=== PATIENT | female | born 1985 | race Caucasian/White ===

== ENCOUNTER 2017-07-01 12:59 | Emergency (ER) | payer BC, OTHER ==
--- NOTE | 2017-07-01 13:19 | UC ---
Throat Pain/Nasal Juma HPI - HPI Summary HPI Summary: 32 yo WF presents with sore throat and b/l earache for the last 4 days. Has not taken anything OTC. Denies fever, chills, cough, SOB, chest pain. - History of Current Complaint Stated Complaint: THROAT,FEVER Time Seen by Provider: 07/01/17 13:19 Hx Obtained From: Patient Hx Last Menstrual Period: ~05/03/15 Onset/Duration: Sudden Onset Severity: Moderate Pain Intensity: 4 Pain Scale Used: 0-10 Numeric - Allergies/Home Medications Allergies/Adverse Reactions: Allergies Allergy/AdvReac Type Severity Reaction Status Date / Time amoxicillin Allergy Intermediate Hives Verified 07/01/17 13:16 Penicillins Allergy Intermediate Hives Verified 07/01/17 13:16 sulfamethoxazole Allergy Intermediate Hives Verified 07/01/17 13:16 [From Bactrim] trimethoprim [From Bactrim] Allergy Intermediate Hives Verified 07/01/17 13:16 PMH/Surg Hx/FS Hx/Imm Hx - Additional Past Medical History Additional PMH: None Previously Healthy: Yes Other History Of: Negative For: HIV, Hepatitis B, Hepatitis C, Anticoagulant Therapy - Surgical History Surgical History: Yes Surgery Procedure, Year, and Place: Appendectomy, 1999, [place] - Family History Known Family History: Positive: None - Social History Occupation: Employed Full-time Lives: With Family Alcohol Use: Occasionally Substance Use Type: None Smoking Status (MU): Never Smoked Tobacco Household Exposure Type: Cigarettes - Immunization History Most Recent Influenza Vaccination: Not the 2014/2015 Season Review of Systems Constitutional: Negative Skin: Negative Eyes: Negative ENT: Sore Throat Respiratory: Negative Cardiovascular: Negative Gastrointestinal: Negative Neurovascular: Negative Neurological: Negative Psychological: Negative All Other Systems Reviewed And Are Negative: Yes Physical Exam - Summary Physical Exam Summary: GENERAL: NAD. WDWN. No pain distress. SKIN: No rashes, sores, lesions, or open wounds. HEENT: Head: AT/NC Eyes: Conjunctiva clear without inflammation or discharge. Ears: Hearing grossly normal. TMs intact, no bulging, erythema, or edema. Nose: Nasal mucosa pink and moist. NTTP maxillary and frontal sinus. Throat: Posterior oropharynx moderate erythema. No tonsillar enlargement. No exudates. Uvula midline. No hoarse voice or muffled voice. NECK: Supple. Mild TTP tonsillar LAD. CHEST: CTAB. No r/r/w. No accessory muscle use. Breathing comfortably and in no distress. CV: RRR. Without m/r/g. Pulses intact. Brisk cap refill. NEURO: Alert. CN II-XII grossly intact. PSYCH: Age appropriate behavior. Triage Information Reviewed: Yes Throat Pain/Nasal Course/Dx - Course Course Of Treatment: POC strep positive. Zpak - Differential Dx/Diagnosis Provider Diagnoses: Strep pharyngitis Discharge - Sign-Out/Discharge Documenting (check all that apply): Discharge/Admit/Transfer - Discharge Plan Condition: Stable Disposition: HOME Prescriptions: Azithromycin TAB* [Zithromax TAB (Z-LISA) 250 mg #6 tabs] 2 tab PO .TODAY, THEN 1 DAILY #1 lisa Patient Education Materials: Strep Throat (DC) Referrals: Bernabe Villalobos MD [Primary Care Provider] - Additional Instructions: If you develop a fever, shortness of breath, chest pain, new or worsening symptoms - please call your PCP or go to the ED. - Billing Disposition and Condition Condition: STABLE Disposition: HOME
[2017-07-01 13:29] VITALS: BP 137/76
== END 2017-07-01 13:51 | disposition home or self-care (01) ==
LOC: UCCORT 12:59
DX: J02.0 Streptococcal pharyngitis (principal); Z88.1 Allergy status to other antibiotic agents; Z88.0 Allergy status to penicillin; Z88.2 Allergy status to sulfonamides; Z77.22 Contact with and (suspected) exposure to environmental tobacco smoke (acute) (chronic)
CPT/HCPCS: 87651; 99212; G0463

== ENCOUNTER 2018-01-12 08:21 | Emergency (ER) | payer OTHER ==
--- OUTSIDE RECORDS SUMMARY | 2018-01-12 08:33 | XMS REPORT ---
:1985 Author Organization [facility] Address [address] 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 Problem Unspecified N83.202 Active 59297529542625520 ovarian cyst, left side Problem Family history Z80.3 Active 324406836 of malignant neoplasm of breast Problem Cystocele, N81.12 Active 200182290 lateral Problem Unspecified R32 Active 648624286 urinary incontinence Problem Other specified N93.8 Active 288136646 abnormal uterine and vaginal bleeding ALLERGIES Substance Reaction Event Type Date Status penicillin rash Drug Allergy Dec, Active amoxicillin rash Drug Allergy Dec, Active Septra rash Drug Allergy Dec, Active ENCOUNTERS Encounter Location Date Diagnosis [facility] [address], [place], [place] [id number] [facility] [address] Dec, [place], [place] [id number] [facility] [address] Dec, [place] [id number] [facility] [address] Aug, Lichen simplex chronicus OBGYN [facility], L28.[address] [place] [id number] abnormal uterine and vaginal bleeding N93.8 [facility] [address] Apr, Lichen simplex chronicus [facility] L[address] [place] [id number] [place] [facility] [address] [facility], Noninflammatory disorder [address] [place], of vulva and perineum, [place] [id number] unspecified N90.9 [place] [facility] [address] [facility], Other specified abnormal [address] [place], uterine and vaginal [place] [id number] bleeding N93.8 ; Abnormal findings on diagnostic imaging of other specified body structures R93.8 ; Other specified noninflammatory disorders of vagina N89.8 and Benign essential microscopic hematuria R31.1 [facility] [address] [place], Feb, [place] [id number] [facility] [address] Feb, Other specified abnormal OBGYN [facility], uterine and vaginal [place] [id number] bleeding N93.8 ; Abnormal findings on diagnostic imaging of other specified body structures R93.8 ; Other specified noninflammatory disorders of vagina N89.8 and Noninflammatory disorder of vulva and perineum, unspecified N90.9 [facility] [address] Feb, OBG[place], [place] [id number] [facility] Feb, [place] [id number] [facility] Jan, [place] [id number] [facility] Jan, Other specified abnormal OBGYN [facility], uterine and vaginal [place] [id number] bleeding N93.8 ; Unspecified ovarian cyst, left side N83.202 and Abnormal findings on diagnostic imaging of other specified body structures R93.8 [facility] Jan, Other specified abnormal OBGYN [facility], uterine and vaginal [place] [id number] bleeding N93.8 [place] [facility] [address] Jan, Other specified abnormal OBGYN [facility], uterine and vaginal [place] [id number] bleeding N93.8 ; Unspecified ovarian cyst, left side N83.202 and Abnormal findings on diagnostic imaging of other specified body structures R93.8 [facility] Jan, Abnormal findings on OBGYN [facility], diagnostic imaging of [place] [id number] other specified body structures R93.8 ; Unspecified ovarian cyst, left side N83.202 and Other specified abnormal uterine and vaginal bleeding N93.8 [place] [facility] Dec, Other specified abnormal OBGYN [facility], uterine and vaginal [place] [id number] bleeding N93.8 ; Unspecified ovarian cyst, left side N83.202 and Abnormal findings on diagnostic imaging of other specified body structures R93.8 [place] [facility] Dec, Other specified abnormal OBGYN [facility], uterine and vaginal [place] [id number] bleeding N93.8 [place] [facility] 14 Dec, 2016 Other specified abnormal OBGYN [facility], uterine and vaginal [place] [id number] bleeding N93.8 [place] [facility] 08 Dec, 2016 Encounter for OBGYN [facility], gynecological examination [place] [id number] (general) (routine) with abnormal findings Z01.411 ; Encounter for screening for malignant neoplasm of cervix Z12.4 ; Unspecified urinary incontinence R32 ; Other specified abnormal uterine and vaginal bleeding N93.8 ; Family history of malignant neoplasm of breast Z80.3 and Cystocele, lateral N81.12 IMMUNIZATIONS No Known Immunizations SOCIAL HISTORY Never Assessed REASON FOR REFERRAL FUNCTIONAL STATUS PLAN OF CARE VITAL SIGNS MEDICATIONS Medication Instructions Dosage Frequency Start Date End Date Duration Status clobetasol applied topically 1 charissa 30 days Active topical 0.05% 2 times a day x 3 weeks when symptomatic, then weekly to pevent flareups PROCEDURES No Known procedures RESULTS No Results REASON FOR VISIT Annual Exam Insurance Providers [facility] Member Patient Patient Patient Patient Patient Subscriber Subscriber Subscriber Group Insurance Plan Plan Plan Plan ID Relationship Address Phone Name Date of ID Name Date of No Type Insurance Insurance Insurance Coverage to Subscriber Address Phone Name Dates Lifetime [phone] Lifetime self [place] [id number] Benefit [place] 48 Benefit [place] [employer] [id number] MEDICAL (GENERAL) HISTORY Type Description Date Medical History Lichen Simplex Chronicus Surgical History appendectomy 2009 Surgical History [place] teeth extracted Surgical History hysterosopy/D&C. 03/26/17 Hospitalization History Childbirth Hospitalization History See above
[2018-01-12 08:40] VITALS: BP 116/75
--- NOTE | 2018-01-12 09:12 | UC ---
Throat Pain/Nasal Juma HPI - HPI Summary HPI Summary: 32-year-old female presents with 4 day history of nonproductive cough, fever ( 102 F), general malaise, fatigue, body aches, and night sweats. Denies nasal congestion, nasal drainage, sore throat, ear pain, chest pain, shortness of breath, abdominal pain, nausea, or vomiting. - History of Current Complaint Chief Complaint: UCGeneralIllness Stated Complaint: FEVER/COUGH/ACHES/DARNELL Time Seen by Provider: 01/12/18 09:01 Hx Obtained From: Patient Hx Last Menstrual Period: 01/12/18 Onset/Duration: Gradual Onset, Lasting Days - 4 Severity: Moderate Pain Intensity: 5 Cough: Nonproductive Associated Signs & Symptoms: Negative: Dysphagia, Wheezing, Sinus Discomfort, Nasal Discharge, Fever, Vomiting, Rash - Allergies/Home Medications Allergies/Adverse Reactions: Allergies Allergy/AdvReac Type Severity Reaction Status Date / Time amoxicillin Allergy Intermediate Hives Verified 01/12/18 08:37 Penicillins Allergy Intermediate Hives Verified 01/12/18 08:37 sulfamethoxazole Allergy Intermediate Hives Verified 01/12/18 08:37 [From Bactrim] trimethoprim [From Bactrim] Allergy Intermediate Hives Verified 01/12/18 08:37 Home Medications: Home Medications Ibuprofen TAB* [Motrin TAB* 600 MG] 600 mg PO Q6H PRN 01/12/18 [History Confirmed 01/12/18] PMH/Surg Hx/FS Hx/Imm Hx Previously Healthy: Yes - Denies significant PMH Other History Of: Negative For: HIV, Hepatitis B, Hepatitis C, Anticoagulant Therapy - Surgical History Surgical History: Yes Surgery Procedure, Year, and Place: Appendectomy, 1999, [place]. colposcopy - Family History Known Family History: Positive: Non-Contributory - Social History Occupation: Employed Full-time Alcohol Use: Occasionally Substance Use Type: None Smoking Status (MU): Never Smoked Tobacco Household Exposure Type: Cigarettes - Immunization History Most Recent Influenza Vaccination: Not the 2014/2015 Season Review of Systems All Other Systems Reviewed And Are Negative: Yes Constitutional: Positive: Fever, Chills, Fatigue, Other - general malaise, body aches, night sweats Skin: Negative: Rash Eyes: Negative: Drainage, Eye Redness ENT: Negative: Sore Throat, Ear Ache, Nasal Discharge, Sinus Congestion, Sinus Pain/Tenderness Respiratory: Positive: Cough. Negative: Shortness Of Breath Cardiovascular: Negative: Palpitations, Chest Pain Gastrointestinal: Negative: Abdominal Pain, Vomiting, Nausea Is Patient Immunocompromised?: No Physical Exam Triage Information Reviewed: Yes Appearance: No Pain Distress, Well-Nourished Vital Signs: Initial Vital Signs Temp 99.3 F 01/12/18 08:35 Pulse 99 01/12/18 08:35 Resp 15 01/12/18 08:35 BP 116/75 01/12/18 08:35 Pulse Ox 100 01/12/18 08:35 Eyes: Positive: Conjunctiva Clear. Negative: Discharge ENT: Positive: TMs normal, Uvula midline. Negative: Pharyngeal erythema, Nasal congestion, Nasal drainage, Tonsillar swelling, Tonsillar exudate, Sinus tenderness Neck: Positive: Supple, Nontender, No Lymphadenopathy Respiratory: Positive: No respiratory distress, No accessory muscle use, Crackles - RLL. Negative: Wheezing Cardiovascular: Positive: RRR, No Murmur, Pulses Normal, Brisk Capillary Refill Abdomen Description: Positive: Nontender, No Organomegaly, Soft. Negative: Distended, Guarding Bowel Sounds: Positive: Present Neurological: Positive: Alert Skin Exam: Normal Diagnostics - Radiology No standard instances Radiology Interpretation Completed By: ED Physician - RLL pneumonia, Radiologist Summary of Radiographic Findings: Patient Name: ERI HAWLEY Medical Record# : [id number]. Ordering Physician: Joseluis Quiñonez NP Acct.#: [id number]. : 1985 Age: 32 Sex: F [facility]. Exam Date: 930 ADM Status: REG ER. Order Information: CHEST PA LAT 2 VWS. Accession Number: [id number]. CPT: 09306. INDICATION: Cough, fever. Shortness of breath. Chest pain/tightness. COMPARISON: No relevant prior exams available on the [facility] PACS for comparison. TECHNIQUE: Dual energy PA and routine lateral views of the chest were obtained. REPORT: Airspace consolidation at the basilar segments of the RIGHT lower lobe. Negative. for volume loss. Clear pleural spaces. Negative for pneumothorax. The heart, pulmonary. vasculature, and mediastinal contours are unremarkable. IMPRESSION : #. RIGHT lower lobe pneumonia. Throat Pain/Nasal Course/Dx - Course Course Of Treatment: 32-year-old female presents with 4 day history of nonproductive cough, fever (102 F), general malaise, fatigue, body aches, and night sweats. Afebrile at time of exam however was noted to have some crackles RLL. CXR confirmed a RLL pneumonia. Will treat with course of azithromycin for CAP and provide Tessalon Perles for cough management. She is to follow up with her PCP within 7 days for recheck of symptoms. Warning symptoms reviewed. Verbalizes understanding and agrees with POC. - Differential Dx/Diagnosis Differential Diagnosis/HQI/PQRI: Influenza, Sinusitis, URI Provider Diagnoses: RLL pneumonia Discharge - Sign-Out/Discharge Documenting (check all that apply): Patient Departure All imaging exams completed and their final reports reviewed: No Studies - Discharge Plan Condition: Stable Disposition: HOME Prescriptions: Azithromyxin DEVEN (NF) [Z-Deven (Zithromax) 250 mg tabs #6] 2 tab PO .TODAY, THEN 1 DAILY #6 tab Benzonatate CAP* [Tessalon 100 MG CAP*] 100 mg PO TID PRN #30 cap PRN Reason: Cough Patient Education Materials: Pneumonia (ED) Forms: *Work Release Referrals: No Primary Care Phys,NOPCP [Primary Care Provider] - Additional Instructions: Your exam and chest X-ray performed in the clinic today are consistent with a right lower lobe pneumonia. Start azithromycin 2 tabs today then 1 tab a day for the next 4 days. Use Tessalon Perles 1 cap every 8 hours as needed for cough. Drink plenty of fluids to stay well hydrated. Take acetaminophen (Tylenol) or ibuprofen (Advil, Motrin) according to directions as needed for fever or pain. Follow-up with your primary care provider within 7 days for a recheck of symptoms. Seek immediate medical attention if you have a persistent fever greater than 100.5 F despite taking acetaminophen or ibuprofen, have chest pain, difficulty breathing, or have any worsening of symptoms. - Billing Disposition and Condition Condition: STABLE Disposition: Home - Attestation Statements Provider Attestation: I was available for consult. This patient was seen by the BEATRIZ. The patient was not presented to, seen by, or examined by me. -Brina
== END 2018-01-12 10:24 | disposition home or self-care (01) ==
LOC: UCCORT 08:21
DX: J18.9 Pneumonia, unspecified organism (principal); Z88.0 Allergy status to penicillin; Z88.1 Allergy status to other antibiotic agents
CPT/HCPCS: 71046; 99212; G0463

== ENCOUNTER 2018-03-12 09:20 | Emergency (ER) | payer OTHER ==
--- OUTSIDE RECORDS SUMMARY | 2018-03-12 10:01 | XMS REPORT | Continuity of Care Document ---
:1985 External Reference #:[id number] Author Name Bernabe Villalobos M.D. Address [address] [place] [address] Care Team Providers Name Role Phone Bernabe Villalobos M.D. Care Team Information Loss Prevention Auditor Unavailable Payers Type Date Identification Numbers Payment Provider Subscriber Policy Number: [id number] [employer] [place] [employer] Group Name: [employer] [address] PayID: [place] [address] Advance Directives Description No Information Available Problems Description No Active Problems Family History Date Family Member(s) Problem(s) Comments Grandfather due to Emphysema () - Paternal ( of) Grandfather Congestive Heart Failure Maternal ; Pacemaker, Aneurysm Grandmother due to Colon Cancer () Grandmother Breast Cancer Maternal Grandmother due to Ovarian Cancer () - Paternal Social History Type Date Description Comments Sex Unknown Marital Status Legal Status: Lives With Spouse Lives With Daughter Lives With Son Work Status Unemployed ETOH Use Occasionally consumes alcohol Tobacco Use Reviewed: 12/20/13 Patient has never smoked Recreational Drug Use Denies Drug Use Smoking Status Reviewed: 02/12/18 Patient has never smoked Allergies, Adverse Reactions, Alerts Date Description Reaction Status Severity Comments 07/16/2013 Penicillins Urticaria Active Severe 07/16/2013 Amoxicillin Urticaria Active Severe 07/16/2013 Septra Urticaria Active Severe Medications Medication Date Status Form Strength Qnty SIG Indications Ordering Provider No Active 02/12/ Active Unknown Medications 2017 Azithromycin 01/21/ Hx Tablets 250mg 6tabs 2 now and Bernabe 2017 - daily x Castellan 02/12/ days os, M.DFrancisco 2018 No Active 01/20/ Hx Unknown Medications 2017 - 2017 Azithromycin // Hx Tablets 250mg 6tabs 2 now and Haley06.9 Bernabe 2016 - 1 daily x Castellan 01/20/ 4 days os, M.D. 2017 Methylprednisolone 10/24/ Hx Tablets 4mg 1tabs as 782.1 Bernabe (Deven) 2014 - directed Castellan 12/20/ os, M.D. 2014 Hydrocortisone 10/24/ Hx Cream 2.5% 30gm apply 782.1 Bernabe 2014 - once Castellan 12/20/ daily os, M.D. 2014 Hydroxyzine HCL 10/24/ Hx Tablets 10mg 60tab 1 by 782.1 Bernabe 2014 - s mouth Castellan 12/20/ four os, M.D. 2015 times a day Norgestimate-Eth 00/ Hx Tablets 0.25-35mg Unknown Estradiol 0000 - -mcg 2017 Tri-Linyah / Hx Tablets 0.18/0.21 Unknown 0000 - 5/0.25 01/20/ mg-35 mcg 2017 Naproxen / Hx Tablets 500mg Unknown 0000 - 2017 Immunizations Description No Information Available Vital Signs Date Vital Result Comment 02/12/2018 9:03am Weight 155.00 lb BP Systolic 108 mmHg BP Diastolic 64 mmHg Height 65.75 inches 5'5.75" Heart Rate 68 /min Respiratory Rate 16 /min BMI (Body Mass Index) 25.2 kg/m2 01/20/2018 8:04am Weight 156.00 lb BP Systolic 118 mmHg BP Diastolic 60 mmHg Heart Rate 76 /min Body Temperature 97.8 F O2 % BldC Oximetry 97 % 06/30/2015 10:28am Weight 159.00 lb Body Temperature 99.0 F 12/20/2014 8:41am Weight 157.00 lb BP Systolic 100 mmHg BP Diastolic 70 mmHg Height 64.75 inches 5'4.75" Heart Rate 68 /min Body Temperature 98.2 F Respiratory Rate 16 /min BMI (Body Mass Index) 26.3 kg/m2 10/24/2014 3:41pm Weight 158.00 lb BP Systolic 120 mmHg BP Diastolic 70 mmHg 07/16/2013 9:50am Weight 156.00 lb BP Systolic 116 mmHg BP Diastolic 76 mmHg Results Test Date Facility Test Result H/L Range Note Laboratory test 07/02/[address] [facility] Rapid Strep POSITIVE Abnormal Negative 1 finding 18 [phone] Molecular Laboratory test 03/26/19 [facility] Urine HCG NEGATIVE Negative 2 , 3 finding 18 [phone] (Qualitative) Laboratory test 07/21/19 [facility] Sedimentation 1 mm/hr 0-20 finding 14 [phone] Rate C-Reactive Protein,Cardiac 3.72 mg/L High 0.00-3.00 4 Anti-Nuclear Antibodies Direct Negative AU/mL Negative Rheumatoid Factor Screen NEGATIVE Negative Systemic Lupus 07/20/2013 [facility] Ra Latex Turbid. 10.1 IU/mL 0.0-13.9 Erythem. Profil [phone] Anti-Dna Antibody ([place]) 1 IU/mL 0-9 5 SM Antibody <0.2 AI 0.0-0.9 PROGRAM COORDINATOR FOR RESIDENCE LIFE Antibody <0.2 AI 0.0-0.9 Sjogrens Antibodies (Ssa) <0.2 AI 0.0-0.9 Antichromatin Antibodies <0.2 AI 0.0-0.9 Sjogrens Antibodies (SSB) <0.2 AI 0.0-0.9 6 CBC W/Automated Diff 07/20/2013 [facility] White Blood 3.5 K/uL 3.1-10.7 [phone] Count Red Blood Count 5.10 M/uL 3.90-5.40 Hemoglobin 15.2 gm/dL 11.6-15.8 Hematocrit 44.3 % 36.0-46.1 Mean Cell Volume 86.9 fl 80.9-99.0 Mean Corpuscular HGB 29.8 pg 25.9-32.7 Mean Corpuscular HGB Conc 34.3 g/dL 30.8-34.3 Platelet Count 237 K/uL 155-360 Red Cell Distri Width SD 39.8 fl 3-47 Red Cell Distri Width %CV 12.8 % 11.7-14.4 Mean Platelet Volume 10.4 fL 8.9-12.4 Neut% 49.3 % 40.4-72.8 Lymph % 39.8 % 17.0-46.1 [place] % 8.3 % 4.3-13.2 Eo% 2.0 % 0.0-6.6 Bas% 0.6 % 0.0-1.1 Neut# 1.72 K/uL 1.0-7.0 Lymph # 1.39 K/uL 0.8-3.4 [place] # 0.29 K/uL Low 0.3-0.9 Eos # 0.07 K/uL 0.0-0.5 Baso # 0.02 K/uL 0.0-0.1 Xray 07/20/2013 [facility] Xray Lt knee <pending> [address] [place] [id number] [phone] Xray Rt Knee <pending> 1 Fagoting Machine Operator: [id number] CONSULT 03/19/17 11;30 3 FIRST MORNING SPECIMENS GENERALLY CONTAIN THE HIGHEST CONCENTRATION OF HCG AND ARE RECOMMENDED FOR EARLY DETECTION OF . Method: Quidel QuickVue One-Step Immunoassay 4 Relative Risk for Future Cardiovascular Event Low <1.00 Average 1.00 - 3.00 High >3.00 5 Negative <5 Equivocal 5 - 9 Positive >9 6 Performed at: RN - [facility] [address] [id number] Bench Loom Weaver: Yareli Machado MD, Phone: [phone] Procedures Date Code Description Status 12/20/2014 61134 Color/Snellen Vision Completed 12/20/2014 26709 Audiogram, Screen Only Pure Tone Completed Encounters Type Date Location Provider Dx Diagnosis Office Visit 02/12/2018 Main Office Bernabe Marcum.00 Encntr for general 9:00a Izzy Villalobos adult medical exam w/o abnormal findings Office Visit 01/20/2018 Main Office Bernabe De Leon18.9 Pneumonia, 8:15a Izzy Villalobos unspecified organism Office Visit 06/30/2015 Main Office Bernabe De Leon06.9 Acute upper 10:30a Izzy Villalobos respiratory infection, unspecified Office Visit 12/20/2014 Main Office Bernabe Cruz00.00 Encntr for general 8:15a Izzy Villalobos adult medical exam w/o abnormal findings Office Visit 10/24/2014 Main Office Bernabe 782.1 Rash & Other Nonspec 3:30p Izzy Villalobos Skin Eruption Office Visit 07/16/2013 Main Office Bernabe 719.46 Pain Joint Lower Leg 9:30a Izzy Villalobos Plan of Treatment 02/12/2018 - Bernabe Villalobos M.D.Z00.00 Encounter for general adult medical examination without abnormal findingsNew Labs:CBC No Diff, Ordered: 02/12/18BMP W/Egfr, Ordered: 02/12/18Lipid Panel, Ordered: 02/12/18ollow up:1 year. physicalAllNew Medication:No Active Medications -
--- NOTE | 2018-03-12 10:27 | UC ---
Respiratory Complaint HPI - HPI Summary HPI Summary: 32 y/o presents to the urgent care c/o sinus congestion, pain w/ yellowish nasal discharge for the past week. Pt states a lot of PND which is trigguering a dry cough. Pain is 4/10. She has taking Ibuprofen, Tessalon tabs, and Mucinex PO to alleviate symptoms. Pt denies dizziness, fever, SOB, chest pain,abdominal pain, N/V/D. Pt has Hx of Pneumonia in 12/2017 and 01/2018 which resolved at the end of January. - History of Current Complaint Stated Complaint: SINUS COUGH Time Seen by Provider: 03/12/18 10:26 Hx Obtained From: Patient Hx Last Menstrual Period: 01/12/18 ?: No Onset/Duration: Gradual Onset, Lasting Weeks - 1 week, Still Present, Worse Since - 2 days Timing: Constant Severity Initially: Mild Severity Currently: Moderate Pain Intensity: 5 - sinus pain and pressure Pain Scale Used: 0-10 Numeric Character: Cough: Nonproductive Aggravating Factors: Recumbent Position Alleviating Factors: OTC Meds Associated Signs And Symptoms: Positive: URI, Nasal Congestion, Sinus Discomfort. Negative: Fever, Chills, Wheezing - Risk Factors Pulmonary Embolism Risk Factors: Negative Cardiac Risk Factors: Negative Pseudomonas Risk Factors: Negative Tuberculosis Risk Factors: Negative - Allergies/Home Medications Allergies/Adverse Reactions: Allergies Allergy/AdvReac Type Severity Reaction Status Date / Time amoxicillin Allergy Intermediate Hives Verified 03/12/18 10:25 Penicillins Allergy Intermediate Hives Verified 03/12/18 10:25 sulfamethoxazole Allergy Intermediate Hives Verified 03/12/18 10:25 [From Bactrim] trimethoprim [From Bactrim] Allergy Intermediate Hives Verified 03/12/18 10:25 Home Medications: Home Medications D-Methorphan/PE/Acetaminophen [Mucinex Fast-Max Congest-Head] 1 each PO ONCE PRN 03/12/18 [History Confirmed 03/12/18] PMH/Surg Hx/FS Hx/Imm Hx Previously Healthy: Yes Respiratory History: Pneumonia Other History Of: Negative For: HIV, Hepatitis B, Hepatitis C, Anticoagulant Therapy - Surgical History Surgical History: Yes Surgery Procedure, Year, and Place: Appendectomy, 1999, [place]. colposcopy - Family History Family History: hypothyrodism - Social History Occupation: Employed Full-time Lives: With Family Alcohol Use: Occasionally Substance Use Type: None Smoking Status (MU): Never Smoked Tobacco Household Exposure Type: Cigarettes - Immunization History Most Recent Influenza Vaccination: Not the 2014/2015 Season Review of Systems All Other Systems Reviewed And Are Negative: Yes Constitutional: Positive: Negative Skin: Positive: Negative Eyes: Positive: Negative ENT: Positive: Sore Throat, Ear Ache - B/L ear presure, Nasal Discharge - yellowish, Sinus Congestion, Sinus Pain/Tenderness Respiratory: Positive: Cough - dry Cardiovascular: Positive: Negative Gastrointestinal: Positive: Negative Genitourinary: Positive: Negative Motor: Positive: Negative Neurovascular: Positive: Negative Musculoskeletal: Positive: Negative Neurological: Positive: Headache Psychological: Positive: Negative Is Patient Immunocompromised?: No Physical Exam - Summary Physical Exam Summary: Vitals: reviewed General: Well developed, well-nourished female patient with NAD. Head and face: Normocephalic and atraumatic, Positive tenderness over the frontal and maxillary sinuses.. Eyes: PERRLA, EOMI x 2. Normal conjunctiva. No eye discharge. ENT: Ears and TM with normal limits. Nose: edematous and erythematous nasal mucosa with with yellowish discharge and erythematous mucosa. Pharynx with erythema, no exudate. + yellowish PND Neck: Supple, no JVD, no carotid bruits and no lymphadenopathy. Lungs: clear, no rales, no rhonchi, no wheezes. CVS: RRR, S1 and S2 present no murmurs or gallops appreciated. Abdomen: soft nontender with positive bowel sounds. Extremities: no edema noted. Neuro: WNL. Skin: warm and dry Triage Information Reviewed: Yes Respiratory Course/Dx - Course Course Of Treatment: 32 y/o presents to the urgent care c/o sinus congestion, pain w/ yellowish nasal discharge for the past week. Pt states a lot of PND which is trigguering a dry cough. Pain is 4/10. She has taking Ibuprofen, Tessalon tabs, and Mucinex PO to alleviate symptoms. Pt denies dizziness, fever , SOB, chest pain,abdominal pain, N/V/D. Pt has Hx of Pneumonia in 12/2017 and 01/2018 which resolved at the end of January. Hx obtained. Pt w/ acute bacterial sinusitis and Hx of recent pneumonia. Pt with 1 week of symptoms getting worse. Pt PCN allergic. Pt Rx Doxycyline PO and flonase nasal spray. Advised to continue w/ Tessalon PO for cough. Discharge instructions explained to Pt. Advised to Return to the clinic or PCP if symptoms do not improve.Pt understood and agreed with plan of care. - Differential Dx/Diagnosis Differential Diagnosis/HQI/PQRI: Bronchitis, Influenza, Laryngitis, Lower Resp Infection, Sinusitis, Other - URI Provider Diagnosis: Acute bacterial sinusitis Discharge - Sign-Out/Discharge Documenting (check all that apply): Patient Departure - D/C home All imaging exams completed and their final reports reviewed: No Studies - Discharge Plan Condition: Stable Disposition: HOME Prescriptions: DOXYcycline CAP(*) [DOXYcycline 100MG CAP(*)] 100 mg PO BID #20 cap Fluticasone NASAL SPRAY 50MCG* [Flonase NASAL SPRAY 50MCG*] 2 spray BOTH NARES DAILY #1 btl Patient Education Materials: Sinusitis (ED) Referrals: Bernabe Villalobos MD [Primary Care Provider] - 3 Days Additional Instructions: 1- Please increase fluid intake and rest. take full course of antibiotic to avoid resistance 2-Use Flonase as directed to help drain fluid. Also buy saline drops to clear sinuses 3- Continue taking Tessalon tabs PO to alleviate cough. 4-Return to the clinic or PCP in 3 days if symptoms do not improve for further management and treatment - Billing Disposition and Condition Condition: STABLE Disposition: Home
[2018-03-12 10:33] VITALS: BP 117/77
== END 2018-03-12 10:53 | disposition home or self-care (01) ==
LOC: UCCORT 09:20
DX: Z88.1 Allergy status to other antibiotic agents (principal); Z88.0 Allergy status to penicillin; J01.90 Acute sinusitis, unspecified; B96.89 Other specified bacterial agents as the cause of diseases classified elsewhere
CPT/HCPCS: 99212; G0463